=== PATIENT | female | born 1940 | race Caucasian/White ===

== ENCOUNTER 2020-02-02 07:58 | Emergency (ER) | payer MEDICARE, OTHER ==
[~2020-02-02] VITALS: Ht 152.4 cm; Wt 45.4 kg
[~2020-02-02 07:58] MED LIST: ADULT LOW DOSE81 MG PO; CIPRO500 MG PO; DICLOFENAC SODI50 MG PO; FLAGYL500 MG PO; GABAPENTIN100 MG PO; LOVASTATIN20 MG PO; NORCO 5-325 TA1 EACH PO; ZOLOFT50 MG PO; ZOLPIDEM TARTRAT5 MG PO
== END 2020-02-02 09:01 | disposition home or self-care (01) ==
LOC: ED 07:58
DX: S81.852A Open bite, left lower leg, initial encounter (principal); S81.851A Open bite, right lower leg, initial encounter; Z85.3 Personal history of malignant neoplasm of breast; Z88.2 Allergy status to sulfonamides; Z79.899 Other long term (current) drug therapy; Z79.82 Long term (current) use of aspirin; W54.0XXA Bitten by dog, initial encounter
CPT/HCPCS: 99283